=== PATIENT | male | born 1985 | race Caucasian/White ===

== ENCOUNTER 2017-09-01 15:53 | Inpatient (IN) | payer SELFPAY ==
[~2017-09-01] VITALS: Ht 167.6 cm; Wt 59.4 kg
[2017-09-01 17:24] LABS: BASOPHILS % 0.3 % (0.0-2.0); EOSINOPHILS % 1.6 % (0.0-5.0); HEMATOCRIT. 46.8 % (42.0-52.0); HEMOGLOBIN. 16.2 g/dL (14.0-18.0); LYMPHOCYTES % 9.9 % (20.0-50.0); MEAN CORPUSCULAR HEMOGLOBIN 31.5 pg (28.0-32.0); MEAN CORPUSCULAR VOLUME 91.3 fL (80.0-94.0); MEAN PLATELET VOLUME 9.3 fl (7.4-10.4); MONOCYTES % 6.5 % (2.0-8.0); NEUTROPHILS % 81.7 % (40.0-76.0); PLATELET 205 x1000/uL (130-400); RED BLOOD CELL COUNT 5.13 mill/uL (4.7-6.1)
[2017-09-01 17:33] LABS: CHLORIDE 105 mEq/L (98-107)
[2017-09-01 17:38] LABS: ETHANOL BLOOD < 10 mg/dL
[2017-09-01 18:19] LABS: CLARITY URINE CLOUDY (CLEAR); COLOR URINE DARK YELLOW (YELLOW); KETONES URINE 2+ (NEGATIVE); LEUKOCYTE ESTERASE URINE NEGATIVE (NEGATIVE); NITRITE URINE NEGATIVE (NEGATIVE); OCCULT BLOOD URINE NEGATIVE (NEGATIVE); PH URINE 6.5 (4.5-8.0); PROTEIN URINE 1+ (NEGATIVE); SPECIFIC GRAVITY URINE 1.029 (1.005-1.030)
[2017-09-01 18:37] LABS: *AMPHETAMINES SCREEN URINE PRESUMTIVE POSITIVE (NEGATIVE); *BARBITURATES SCREEN URINE NEGATIVE (NEGATIVE); *COCAINE SCREEN URINE PRESUMTIVE POSITIVE (NEGATIVE); METHADONE URINE SCREEN NEGATIVE (NEGATIVE); OPIATES URINE SCREEN NEGATIVE (NEGATIVE); PHENCYCLIDINE URINE SCREEN NEGATIVE (NEGATIVE)
[2017-09-01 18:38] LABS: CANNABINOID URINE SCREEN NEGATIVE (NEGATIVE)
[2017-09-01 18:40] LABS: *BENZODIAZEPINES SCREEN URINE NEGATIVE (NEGATIVE)
[2017-09-01] MEDS ORDERED: SODIUM CHLORIDE 0.9% 1,000 ML IV ONE (20:20)
[2017-09-01] MEDS ORDERED: LORAZEPAM 2MG/ML CPJ ONE (21:24)
[2017-09-02] MEDS ORDERED: SODIUM CHLORIDE 0.9% 1,000 ML IV ONE (07:15)
[2017-09-02] MEDS ORDERED: DEXTROSE 50% WATER 50ML SYRINGE IV ONE (18:59)
[2017-09-02 22:15] LABS: AMMONIA 48 uMol/L (<32)
[2017-09-02] MEDS ORDERED: LACTULOSE 20G/30ML UDC PO SCH (23:20)
[2017-09-03] MEDS ORDERED: SODIUM CHLORIDE 0.9% 1,000 ML IV ONE ×2 (10:47→18:06)
[2017-09-03 11:14] LABS: AMMONIA 34 uMol/L (<32)
[2017-09-03] MEDS ORDERED: LACTULOSE 20G/30ML UDC PO ONE (17:15)
[2017-09-03] MEDS ORDERED: LORAZEPAM 2MG/ML CPJ IV ONE (17:45)
[2017-09-03 21:00] VITALS: BP 104/60
[2017-09-03] MEDS ORDERED: MAGNESIUM/ALUMINUM HYDROXIDE/SIMETHICONE 30ML UDC PO PRN (22:00)
[2017-09-03] MEDS ORDERED: DOCUSATE SODIUM 100MG CAPSULE PO PRN (22:00)
[2017-09-03] MEDS ORDERED: NA PHOS,M-B/NA PHOS,DI-BA ENEMA 118ML PR PRN (22:00)
[2017-09-03] MEDS ORDERED: DIPHENHYDRAMINE 50MG/ML VIAL IV PRN (22:00)
[2017-09-03] MEDS ORDERED: CLONIDINE 0.1MG TABLET PO PRN (22:00)
[2017-09-03] MEDS ORDERED: ACETAMINOPHEN 650MG SUPP PR PRN (22:00)
[2017-09-03] MEDS ORDERED: ACETAMINOPHEN 650MG/20.3ML UDC GT PRN (22:00)
[2017-09-03] MEDS ORDERED: ONDANSETRON HCL 4MG/2ML VIAL IV PRN (22:00)
[2017-09-03] MEDS ORDERED: IPRATROPIUM/ALBUTEROL 0.5-3(2.5)MG/3ML NEB INH PRN (22:00)
[2017-09-03] MEDS ORDERED: LACTULOSE 20G/30ML UDC PO PRN (22:00)
[2017-09-03] MEDS ORDERED: ACETAMINOPHEN 325MG TABLET PO PRN (22:00)
[2017-09-03] MEDS ORDERED: GUAIFENESIN 200MG/10ML SUGAR FREE UDC PO PRN (22:00)
[2017-09-03 22:39] LABS: CLARITY URINE CLOUDY (CLEAR); COLOR URINE YELLOW (YELLOW); KETONES URINE 3+ (NEGATIVE); LEUKOCYTE ESTERASE URINE NEGATIVE (NEGATIVE); NITRITE URINE POSITIVE (NEGATIVE); OCCULT BLOOD URINE NEGATIVE (NEGATIVE); PH URINE 7.5 (4.5-8.0); PROTEIN URINE NEGATIVE (NEGATIVE); SPECIFIC GRAVITY URINE 1.017 (1.005-1.030)
[2017-09-03] MEDS: SODIUM CHLORIDE 0.9% INJ 3ML FLUSH IVF SCH (22:45)
[2017-09-03] MEDS: THIAMINE HCL 100MG TABLET PO SCH (22:45)
[2017-09-03] MEDS: DEXT 5%/0.45% NACL 1000ML 1,000 ML IV SCH (22:46)
[2017-09-03 22:47] LABS: *AMPHETAMINES SCREEN URINE NEGATIVE (NEGATIVE); *BARBITURATES SCREEN URINE NEGATIVE (NEGATIVE); *BENZODIAZEPINES SCREEN URINE NEGATIVE (NEGATIVE); *COCAINE SCREEN URINE NEGATIVE (NEGATIVE); METHADONE URINE SCREEN NEGATIVE (NEGATIVE); OPIATES URINE SCREEN NEGATIVE (NEGATIVE)
[2017-09-03 22:48] LABS: CANNABINOID URINE SCREEN NEGATIVE (NEGATIVE); PHENCYCLIDINE URINE SCREEN NEGATIVE (NEGATIVE)
[2017-09-03] MEDS ORDERED: LORAZEPAM 2MG/ML CPJ IV PRN (23:50)
[2017-09-04] VITALS: BP 99/50
[2017-09-04 00:46] LABS: BG BASE EXCESS -1.9 mmol/L (-2.0-2.0); BG CARBOXYHEMOGLOBIN 1.1 % (0.5-1.5); BG DEOXYHEMOGLOBIN 2.6 % (0.0-5.0); BG FRACTION INSPIRED OXYGEN 21; BG HCO3 ACT 22.5 mmol/L (22.0-26.0); BG METHEMOGLOBIN 0.4 % (0.0-1.5); BG OXYGEN SATURATION 97.4 % (92.0-98.5); BG OXYHEMOGLOBIN 95.9 % (94.0-97.0); BG PCO2 37.2 mmHg (35.0-45.0); BG PH 7.399 (7.350-7.450); BG PO2 97.6 mmHg (75.0-100.0); BG SAMPLE SITE LEFT RADIAL; BG TOTAL HEMOGLOBIN 14.8 g/dL (12.0-18.0); BG VENT MODE ROOM AIR
[2017-09-04 00:53] LABS: BASOPHILS % 0.5 % (0.0-2.0); EOSINOPHILS % 7.4 % (0.0-5.0); HEMOGLOBIN. 14.2 g/dL (14.0-18.0); LYMPHOCYTES % 28.9 % (20.0-50.0); MEAN CORPUSCULAR HEMOGLOBIN 32.2 pg (28.0-32.0); MEAN CORPUSCULAR VOLUME 90.7 fL (80.0-94.0); MEAN PLATELET VOLUME 9.3 fl (7.4-10.4); MONOCYTES % 10.2 % (2.0-8.0); PLATELET 199 x1000/uL (130-400); RED BLOOD CELL COUNT 4.41 mill/uL (4.7-6.1); RED CELL DISTRIBUTION WIDTH 12.8 % (11.6-14.6)
[2017-09-04] MEDS ORDERED: CEFTRIAXONE 1 G PREMIX 50 ML IV NR (01:00)
[2017-09-04 01:09] LABS: CHLORIDE 108 mEq/L (98-107)
[2017-09-04 01:14] LABS: AMMONIA 49 uMol/L (<32)
[2017-09-04 02:42] LABS: CREATINE KINASE 1527 IU/L (39-308)
[2017-09-04 04:00] VITALS: BP 98/52
[2017-09-04] MEDS: SODIUM CHLORIDE 0.9% INJ 3ML FLUSH IVF SCH ×3 (05:26→20:55)
[2017-09-04 06:51] LABS: INR 1.1; PARTIAL THROMBOPLASTIN TIME 26.1 sec (23.4-31.0)
[2017-09-04 06:53] LABS: BASOPHILS % 0.4 % (0.0-2.0); EOSINOPHILS % 8.2 % (0.0-5.0); HEMATOCRIT. 41.5 % (42.0-52.0); HEMOGLOBIN. 14.5 g/dL (14.0-18.0); LYMPHOCYTES % 23.7 % (20.0-50.0); MEAN CORPUSCULAR HEMOGLOBIN 31.7 pg (28.0-32.0); MEAN CORPUSCULAR VOLUME 90.7 fL (80.0-94.0); MEAN PLATELET VOLUME 9.5 fl (7.4-10.4); MONOCYTES % 9.6 % (2.0-8.0); NEUTROPHILS % 58.1 % (40.0-76.0); PLATELET 186 x1000/uL (130-400); RED BLOOD CELL COUNT 4.57 mill/uL (4.7-6.1); RED CELL DISTRIBUTION WIDTH 12.8 % (11.6-14.6)
[2017-09-04 08:00] VITALS: BP 133/74
[2017-09-04 08:30] LABS: CHLORIDE 110 mEq/L (98-107)
[2017-09-04] MEDS: ENOXAPARIN 40MG/0.4ML SYR SUBCUT SCH (08:42)
[2017-09-04] MEDS: FOLIC ACID 1MG TABLET PO SCH (08:42)
[2017-09-04] MEDS: THIAMINE HCL 100MG TABLET PO SCH (08:42)
[2017-09-04 08:49] LABS: LDL CHOLESTEROL 53 mg/dL (5-100)
[2017-09-04 08:50] LABS: HDL CHOLESTEROL 40 mg/dL (40-59)
[2017-09-04 09:11] LABS: CREATINE KINASE 962 IU/L (39-308)
[2017-09-04 12:00] VITALS: BP 100/56
[2017-09-04] MEDS: DEXT 5%/0.45% NACL 1000ML 1,000 ML IV SCH (13:23)
[2017-09-04 16:00] VITALS: BP 100/56
[2017-09-04 20:00] VITALS: BP 100/53
[2017-09-04] MEDS: LACTULOSE 20G/30ML UDC PO SCH (20:55)
[2017-09-04] MEDS ORDERED: CEFTRIAXONE 1 G PREMIX 50 ML IV SCH (21:00)
[2017-09-05] VITALS: BP 104/58
[2017-09-05 04:00] VITALS: BP 100/59
[2017-09-05] MEDS: LACTULOSE 20G/30ML UDC PO SCH ×3 (05:13→16:05)
[2017-09-05] MEDS: SODIUM CHLORIDE 0.9% INJ 3ML FLUSH IVF SCH ×2 (05:13→16:24)
[2017-09-05 08:00] VITALS: BP 100/60
[2017-09-05 09:17] LABS: BASOPHILS % 0.5 % (0.0-2.0); EOSINOPHILS % 8.7 % (0.0-5.0); HEMATOCRIT. 44.2 % (42.0-52.0); HEMOGLOBIN. 15.5 g/dL (14.0-18.0); LYMPHOCYTES % 31.4 % (20.0-50.0); MEAN PLATELET VOLUME 9.5 fl (7.4-10.4); MONOCYTES % 9.9 % (2.0-8.0); NEUTROPHILS % 49.5 % (40.0-76.0); PLATELET 211 x1000/uL (130-400); RED BLOOD CELL COUNT 4.86 mill/uL (4.7-6.1); RED CELL DISTRIBUTION WIDTH 12.8 % (11.6-14.6)
[2017-09-05 09:48] LABS: CHLORIDE 109 mEq/L (98-107)
[2017-09-05] MEDS: THIAMINE HCL 100MG TABLET PO SCH (10:13)
[2017-09-05] MEDS: FOLIC ACID 1MG TABLET PO SCH (10:13)
[2017-09-05] MEDS: ENOXAPARIN 40MG/0.4ML SYR SUBCUT SCH (10:14)
[2017-09-05 16:00] VITALS: BP 110/60
[2017-09-05 18:37] VITALS: BP 110/60
[2017-09-05 20:00] VITALS: BP 107/62
== END 2017-09-05 20:24 | disposition home or self-care (01) | DRG 279 ==
LOC: ER 16:00 → 8WST 09-03 17:13 → ENRESERV 09-03 18:39
PROVIDERS: ADMIT Family Medicine; ATTEND Family Medicine
DX: K72.90 Hepatic failure, unspecified without coma (principal); I10 Essential (primary) hypertension; N39.0 Urinary tract infection, site not specified; F14.90 Cocaine use, unspecified, uncomplicated; F15.90 Other stimulant use, unspecified, uncomplicated
CPT/HCPCS: 36415; 36600; 70450; 70551; 71045; 80053; 80061; 80305; 81003; 82140; 82375; 82550; 82805; 82962; 84484; 85025; 85610; 85730; 87086; 93005; 96374; 96375; 97162; 99285; G0482; J0696; J1650; J2060; J3490; J7030